=== PATIENT | male | born 1960 | race Caucasian/White ===

== ENCOUNTER 2018-07-12 12:33 | Day surgery (SDC) | payer OTHER ==
[~2018-07-12] VITALS: Ht 190.5 cm; Wt 99.4 kg
[2018-07-12] MEDS ORDERED: DULCOLAX TAB5 MG PO (13:07)
[2018-07-12] MEDS ORDERED: DEBROX OT (13:08)
[2018-07-12] MEDS ORDERED: VITAMIN D31000 I1 PO (13:11)
[2018-07-12] MEDS ORDERED: SINEMET 25/101 UDTAB PO (13:11)
[2018-07-12] MEDS ORDERED: CYMBALTA 60MG60 MG PO (13:12)
[2018-07-12] MEDS ORDERED: SYNTHROID 0.10.15 MG PO (13:12)
[2018-07-12] MEDS ORDERED: MULTIPLE VITAMI1 CAP PO (13:12)
[2018-07-12] MEDS ORDERED: MINIPRESS 1M1 MG/CAP PO (13:13)
[2018-07-12] MEDS ORDERED: NARCAN4 MG NS (13:13)
[2018-07-12] MEDS ORDERED: GOOD NEIGH3.4 GM/Dos PO (13:14)
[2018-07-12] MEDS ORDERED: AZILECT1 MG PO (13:14)
[2018-07-12 13:15] VITALS: BP 119/84; PULSE 95; TEMP 98.2
[2018-07-12] MEDS ORDERED: MSIR30 MG PO (13:15)
[2018-07-12 15:25] VITALS: BP 108/78; PULSE 81; TEMP 97.4
[2018-07-12 15:40] VITALS: BP 120/86; PULSE 80
[2018-07-12 15:55] VITALS: BP 112/73; PULSE 78
== END 2018-07-12 16:21 | disposition home or self-care (01) ==
LOC: SDCO 12:33
DX: Z12.11 Encounter for screening for malignant neoplasm of colon (principal); K57.30 Diverticulosis of large intestine without perforation or abscess without bleeding; K59.09 Other constipation; G20 Parkinson's disease; G62.9 Polyneuropathy, unspecified; G89.29 Other chronic pain; F32.9 Major depressive disorder, single episode, unspecified; E11.9 Type 2 diabetes mellitus without complications; K21.9 Gastro-esophageal reflux disease without esophagitis; K58.1 Irritable bowel syndrome with constipation; Z88.8 Allergy status to other drugs, medicaments and biological substances; Z88.5 Allergy status to narcotic agent
CPT/HCPCS: J2250; J2704; J7030